=== PATIENT | female | born 1950 | race Caucasian/White ===

== ENCOUNTER → 2024-05-07 10:23 | Outpatient (REF) | payer OTHER, SELFPAY | LOC: RAD 10:23 | PROVIDERS: ATTENDING PHYSICIAN Obstetrics & Gynecology; FAMILY PHYSICIAN Physician Assistant | DX: N95.0 Postmenopausal bleeding (principal) | CPT/HCPCS: 76830; 76856 ==

== ENCOUNTER 2024-06-25 06:26 | Day surgery (SDC) | payer OTHER, SELFPAY ==
[2024-06-19 10:37] VITALS: BMI 35.0
[2024-06-19 12:03] LABS: Blood Urea Nitrogen 28 mg/dl (7-17); Calcium 10.2 mg/dl (8.4-10.2); Carbon Dioxide 29 mmol/L (22-30); Chloride 100 mmol/L (98-107); Estimated Creatinine Clearance 54 ml/min; Glucose 93 mg/dl (70-99); Potassium 4.7 mmol/L (3.5-5.1); Sodium 140 mmol/L (135-145); eGFR 53.06
--- NOTE | 2024-06-20 08:38 | PTCARENOTE ---
Abn ECG, Dr. Moore notified, no additional requests.
[2024-06-25] VITALS (12 sets, daily range): BP systolic 166–228; BP diastolic 49–93; BMI 35.0
--- NOTE | 2024-06-25 13:42 | PTCARENOTE ---
Pt updated on delay in surgery start due to Dr. Guzmán being involved in a case. Pt OOB to void. Denies any other needs at this time.
[2024-06-25] MEDS: APRESOLINE 5 MG IV ×2 (15:22→15:32)
== END 2024-06-25 16:40 | disposition home or self-care (01) ==
LOC: SDS 06:26
PROVIDERS: ATTENDING PHYSICIAN Obstetrics & Gynecology; FAMILY PHYSICIAN Physician Assistant
DX: N84.0 Polyp of corpus uteri (principal); N95.0 Postmenopausal bleeding
CPT/HCPCS: 58558; 88305; 36415; 71046; 80048; 93005

== ENCOUNTER → 2024-11-19 08:55 | Outpatient (REF) | payer OTHER, SELFPAY | LOC: RAD 08:55 | PROVIDERS: ATTENDING PHYSICIAN Physician Assistant | DX: Z00.8 Encounter for other general examination (principal); E04.2 Nontoxic multinodular goiter; I49.9 Cardiac arrhythmia, unspecified | CPT/HCPCS: 76536; 93225; 93226 ==

== ENCOUNTER → 2025-01-14 09:10 | Outpatient (REF) | payer OTHER, SELFPAY | LOC: RCS 09:10 | PROVIDERS: ATTENDING PHYSICIAN Internal Medicine Cardiovascular Disease; FAMILY PHYSICIAN Physician Assistant | DX: I10 Essential (primary) hypertension (principal) | CPT/HCPCS: 93306 ==

== ENCOUNTER 2025-08-05 12:48 | Emergency (ER) | payer OTHER, SELFPAY ==
[2025-08-05 12:58] VITALS: BP 192/70
[2025-08-05 13:16] LABS: Hematocrit 41.1 % (37.0-47.0); Hemoglobin 13.9 g/dL (12.0-16.0); Mean Corp Hgb Conc. 33.8 g/dL (33.0-37.0); Mean Corpuscular Volume 90.3 fL (81.0-99.0); Nucleated Red Blood Cells % 0 %; Platelet Count 304 10^3/uL (130-400); Red Cell Dist. Width 12.4 % (11.5-14.5)
[2025-08-05 13:34] LABS: ALT (SGPT) 35 U/L (0-35); AST (SGOT) 30 U/L (14-36); Albumin 4.6 g/dl (3.5-5.0); Alkaline Phosphatase 76 U/L (38-126); Blood Urea Nitrogen 21 mg/dl (7-17); Calcium 9.8 mg/dl (8.4-10.2); Carbon Dioxide 30 mmol/L (22-30); Chloride 101 mmol/L (98-107); Glucose 106 mg/dl (70-99); Potassium 4.1 mmol/L (3.5-5.1); Sodium 139 mmol/L (135-145); Total Protein 7.5 g/dl (6.3-8.2); eGFR 59.12
[2025-08-05 13:43] LABS: Troponin I < 0.012 ng/ml
[2025-08-05 14:53] VITALS: BP 210/60
[2025-08-05 14:57] VITALS: BP 210/60
--- NOTE | 2025-08-05 15:54 | ED.GENMED ---
History of Present Illness
General
Chief Complaint: Chest Pain
Source: patient
Exam Limitations: none
Time Seen by Provider: 08/05/25 14:46
History of Present Illness
History of Present Illness:
74-year-old female with history of hypertension hyperlipidemia presents complaining onset of chest discomfort yesterday. Has been a constant dull ache to the left side of her chest without associated nausea diaphoresis shortness of breath arm or
leg pain. Did not radiate. Is not pleuritic in nature. She notes she has been coughing frequently over the past week. No fevers. No leg swelling or calf pain. No recent travel or surgery. No other complaints
Past History
Past History
ED Past Medical History: GERD, HTN, Hypercholesterolemia and Other (OA)
ED Past Surgical History: Other (gastric sleeve)
Social History
Tobacco: Non-smoker
Personal:
Living: with family
Phy Exam
Physical Exam
Physical Exam:
General: Well-appearing female no acute respiratory distress
HEENT: Normal cephalic atraumatic
Heart: Regular rate and rhythm
Lungs: Clear no wheeze
Abdomen is soft nontender nondistended
Extremities: No cyanosis no calf tenderness no edema
Skin is warm no rash
Scores
Heart Score for Chest Pain Patients
STEMI patient?: No
History: Slightly or Non-Suspicious
ECG: Normal
Age: >/= 65 years
Risk Factors: 1 or 2 Risk Factors
Troponin: </= Normal Limit
Heart Score for Chest Pain Patients: 3
Heart Score Risk: 2.5% MACE over next 6 weeks
Course
Orders/Labs/Results
Orders:
Orders
08/05/25 12:48
Electrocardiogram (*1) Urgent
Reason for Study: Chest Pain
EKG- Treatment ONCE
08/05/25 13:07
Comprehensive Metabolic Panel Urgent
08/05/25 13:08
Complete Blood Count/With Diff Urgent
Troponin I Urgent
08/05/25 15:11
CR Chest - 2 Views Urgent
Comment:
Reason For Exam: chest pain
Abnormal Lab Results
08/05/25 08/05/25
13:07 13:08
Lymphocytes % 19.9 L %
(20.5-51.1)
BUN 21 H mg/dl
(7-17)
Glucose 106 H mg/dl
(70-99)
Total Bilirubin 1.8 H mg/dl
(0.2-1.3)
08/05/25 13:08
08/05/25 13:07
Vital Signs
Initial and Last Documented VS:
Initial Vital Signs
Temp Pulse Resp BP Pulse Ox
97.5 F 60 18 192/70 99
08/05/25 12:58 08/05/25 12:58 08/05/25 12:58 08/05/25 12:58 08/05/25 12:58
Last Documented Vital Signs
Temp Pulse Resp BP Pulse Ox
97.5 F 47 14 210/60 96
08/05/25 12:58 08/05/25 15:00 08/05/25 15:00 08/05/25 14:57 08/05/25 15:00
MDM/Problems Addressed
Differential Diagnosis Includes:
Patient presents with chest pain. Differential could include ACS versus reflux versus musculoskeletal chest pain versus pneumothorax.
EKG Shows NSR without ischemic changes. Rate of 65.
Trop is undetectable. With 24 hours of discomfort do not suspect ACS with negative troponin. Chest x-ray was reviewed and is clear.
*Pulse Oximetry
SaO2: 96
Oxygen Mode of Delivery: Room air
Patient hypoxic: no
*Critical Care Note
Total Time (30-74mins, 75-104mins- exclusive of procedures): Not Applicable
ED Attending Note
-
Portions of this chart may have been created with voice recognition software.� Occasional wrong word or��sound alike� substitutions may have occurred due to the inherent limitations of voice recognition software.
Discharge Plan
Departure
Patient Disposition: Home (Routine Discharge)
Date of Disposition: 08/05/25
Time of Disposition: 15:58
Patient with high blood pressure during this ER visit?: No
Discharge Problem:
Chest pain
Instructions: Chest Pain DCA Follow Up
Prescriptions:
No Action
atorvastatin 10 MG tablet
10 mg PO DAILY
metoprolol succinate 50 MG tablet extended release 24 hr
75 mg PO DAILY
lisinopril 20 MG tablet
20 mg PO DAILY
calcium carbonate 600 MG tablet
1,200 mg PO DAILY
cholecalciferol (vitamin D3) 1,000 UNITS tablet
1,000 units PO DAILY
turmeric-turmeric root extract 1 EACH capsule
1 ea PO DAILY
esomeprazole magnesium [Nexium] 20 MG capsule,delayed release(DR/EC)
20 mg PO BID
vitamin [id number] acid 2,500-400 mcg Tablet,Disintegrating
1 tab PO DAILY
misoprostol 200 mcg Tablet
1 mcg PO ONCE
Patient Comments:
2 tabs evening prior to procedure
biotin 10,000 mcg Capsule
1 mcg PO DAILY
hrglszvgh-yqedxgji-xan-hyalur [Move Free Ultra Triple Action] 40-5-3.3 mg Tablet
1 tab PO DAILY
Referrals:
Zina Cameron PA-C [Family Provider, Internal Medicine]
Activity Restrictions/Additional Instructions:
Please return here for worsening symptoms otherwise follow-up with your mononitrotoluene operator
Interventions
Interventions:
*Risk Screen - Suicide Last Done: 08/05/25 12:57
*General Assessment Last Done: 08/05/25 12:57
*Neglect/Abuse Screening Last Done: 08/05/25 12:57
*ED COVID-19 Vaccine History Last Done: 08/05/25 12:57
*ED Influenza Vaccine History Last Done: 08/05/25 12:57
[facility] Fall Risk Assessment Tool Last Done: 08/05/25 14:53
ED- Cardiac Assessment Last Done: 08/05/25 14:53
Discharge Date and Time
Print Language: MACANESE
[2025-08-05 16:32] VITALS: BP 178/93
== END 2025-08-05 16:32 | disposition home or self-care (01) ==
LOC: EMR 12:48
PROVIDERS: Emergency Medicine; EMERGENCY PHYSICIAN Emergency Medicine; FAMILY PHYSICIAN Physician Assistant
DX: R07.89 Other chest pain (principal); I10 Essential (primary) hypertension; E78.00 Pure hypercholesterolemia, unspecified
CPT/HCPCS: 99285; 71046; 80053; 84484; 85025; 93005